=== PATIENT | female | born 1955 | race Native Hawaiian/Other Pacific Islander ===

== ENCOUNTER 2016-05-07 09:21 | Outpatient (CLI) | payer BC ==
[~2016-05-07 09:21] MED LIST: ASTEPRO0.15 %; CELEBREX200 MG PO; FLUC150T PO; INDERAL LA80 MG PO; LEVO0.0723 PO; MAXALT10 MG OR; NAPROXEN SOD550 MG OR; NEXIUM40 M1 PO; RANI150T78 PO; SIMV20TA2 PO; Z-PAK PO
[2016-05-07 10:17] LABS: PLATELET COUNT 366 K/uL (152-353)
[2016-05-07 10:55] LABS: POTASSIUM 3.6 mmol/L (3.6-5.2)
== END 2016-05-07 19:07 | disposition home or self-care (01) ==
LOC: LABW 09:21
PROVIDERS: Internal Medicine
DX: Z00.00 Encounter for general adult medical examination without abnormal findings (principal); J42 Unspecified chronic bronchitis; E03.9 Hypothyroidism, unspecified
CPT/HCPCS: 36415; 80053; 80061; 81000; 84439; 84443; 84480; 85027

== ENCOUNTER 2016-05-08 14:47 | Outpatient (CLI) | payer BC | END 2016-05-08 19:10 | disposition home or self-care (01) | LOC: MAMMO 14:47 → RAD 14:47 → MAMMO 15:00 | DX: Z12.31 Encounter for screening mammogram for malignant neoplasm of breast (principal); Z13.820 Encounter for screening for osteoporosis | CPT/HCPCS: G0202-TC ==

== ENCOUNTER 2016-06-09 01:30 | Observation (INO) | payer BC ==
[~2016-06-09] VITALS: Ht 154.9 cm; Wt 94.5 kg
[2016-06-09 01:50] VITALS: BP 182/95; TEMP 97.1
[2016-06-09] MEDS ORDERED: DEXL60CA4 PO (01:55)
[2016-06-09] MEDS ORDERED: ASPIRIN81 M1 PO (02:01)
[2016-06-09] MEDS ORDERED: CETI10TA PO (02:02)
[2016-06-09] MEDS ORDERED: B-125000 MC1 SL (02:03)
[2016-06-09] MEDS ORDERED: ZONEGRAN100 MG PO (02:04)
[2016-06-09] MEDS ORDERED: MELOXICAM15 MG PO (02:05)
[2016-06-09] MEDS ORDERED: FLUTICASONE50 MCG (02:07)
[2016-06-09 02:12] LABS: POTASSIUM 3.9 mmol/L (3.6-5.2); SODIUM 139 mmol/L (136-145)
[2016-06-09 02:23] LABS: PLATELET COUNT 347 K/uL (152-353)
[2016-06-09 03:27] VITALS: BP 147/66; TEMP 98.2; Ht 154.9 cm; Wt 94.5 kg
[2016-06-09 03:46] LABS: PARTIAL THROMBOPLASTIN TIME 23.3 SECONDS (24.5-33.6)
[2016-06-09 08:00] VITALS: BP 140/68; TEMP 98
[2016-06-09 12:00] VITALS: BP 143/59; TEMP 98.4
[2016-06-09 16:00] VITALS: BP 142/62; TEMP 98.1
[2016-06-09 20:00] VITALS: BP 137/57; TEMP 98.2
[2016-06-10] VITALS: BP 104/33; TEMP 97.9
[2016-06-10 04:00] VITALS: BP 128/58; TEMP 97.8
[2016-06-10 04:50] LABS: PLATELET COUNT 351 K/uL (152-353)
[2016-06-10 05:01] LABS: POTASSIUM 3.6 mmol/L (3.6-5.2)
[2016-06-10 08:00] VITALS: BP 119/58; TEMP 97.7
[2016-06-10] MEDS ORDERED: MAXALT10 MG PO (12:05)
== END 2016-06-10 14:34 | disposition home or self-care (01) ==
LOC: ED 01:30 → MED/SURG 02:30
PROVIDERS: Emergency Medicine; ADMIT Family Medicine
DX: R07.89 Other chest pain (principal); G43.809 Other migraine, not intractable, without status migrainosus; E03.8 Other specified hypothyroidism
CPT/HCPCS: 36415; 36591; 80048; 80053; 81000; 82550; 83735; 84443; 84484; 85027; 85379; 85610; 85730; 93005; 96372; 99220; 99283; G0378; J1650

== ENCOUNTER 2016-09-16 10:44 | Outpatient (CLI) | payer BC ==
[~2016-09-16 10:44] MED LIST changes: +ASPIRIN81 M1 PO; +B-125000 MC1 SL; +CETI10TA PO; +DEXL60CA4 PO; +FLUTICASONE50 MCG; +MAXALT10 MG PO; +MELOXICAM15 MG PO; +ZONEGRAN100 MG PO
== END 2016-09-16 19:08 | disposition home or self-care (01) ==
LOC: LABW 10:44
DX: E03.8 Other specified hypothyroidism (principal)
CPT/HCPCS: 36415; 84439; 84443; 84480

== ENCOUNTER 2017-04-06 11:25 | Outpatient (CLI) | payer BC | END 2017-04-06 20:29 | disposition home or self-care (01) | LOC: LABW 11:25 | DX: E03.8 Other specified hypothyroidism (principal) | CPT/HCPCS: 36415; 84439; 84443; 84480 ==

== ENCOUNTER 2017-07-20 11:20 | Outpatient (CLI) | payer BC | END 2017-07-20 22:49 | disposition home or self-care (01) | LOC: RAD 11:20 | DX: J01.00 Acute maxillary sinusitis, unspecified (principal); J40 Bronchitis, not specified as acute or chronic ==

== ENCOUNTER 2017-08-25 12:49 | Outpatient (CLI) | payer BC | END 2017-08-25 19:49 | disposition home or self-care (01) | LOC: CT 12:49 | DX: J01.00 Acute maxillary sinusitis, unspecified (principal); J40 Bronchitis, not specified as acute or chronic ==

== ENCOUNTER 2017-10-08 08:10 | Outpatient (CLI) | payer BC ==
[2017-10-08 08:33] LABS: PLATELET COUNT 375 K/uL (152-353)
[2017-10-08 08:46] LABS: POTASSIUM 3.7 mmol/L (3.6-5.2)
== END 2017-10-08 21:16 | disposition home or self-care (01) ==
LOC: LABW 08:10
PROVIDERS: Internal Medicine
DX: Z00.00 Encounter for general adult medical examination without abnormal findings (principal); E55.9 Vitamin D deficiency, unspecified
CPT/HCPCS: 36415; 80053; 80061; 81000; 82306; 84439; 84443; 85027

== ENCOUNTER 2017-10-20 13:33 | Outpatient (CLI) | payer BC | END 2017-10-20 19:36 | disposition home or self-care (01) | LOC: MAMMO 13:33 | DX: Z12.31 Encounter for screening mammogram for malignant neoplasm of breast (principal) ==

== ENCOUNTER → 2018-07-12 | Outpatient (CLI) | payer BC | LOC: LABW 14:50 | DX: E03.9 Hypothyroidism, unspecified (principal) | CPT/HCPCS: 36415; 84439; 84443; 84480 ==

== ENCOUNTER 2018-10-09 08:24 | Outpatient (CLI) | payer BC ==
[2018-10-09 08:54] LABS: PLATELET COUNT 362 K/uL (152-353)
[2018-10-09 09:12] LABS: POTASSIUM 3.6 mmol/L (3.6-5.2); SODIUM 140 mmol/L (136-145)
== END 2018-10-09 22:32 | disposition home or self-care (01) ==
LOC: LAB 08:24
PROVIDERS: Internal Medicine
DX: Z00.00 Encounter for general adult medical examination without abnormal findings (principal)
CPT/HCPCS: 36415; 80053; 80061; 81000; 82306; 84439; 84443; 85027

== ENCOUNTER 2018-11-03 10:45 | Outpatient (CLI) | payer BC | END 2018-11-03 23:46 | disposition home or self-care (01) | LOC: MAMMO 10:45 | DX: Z13.820 Encounter for screening for osteoporosis (principal); Z12.31 Encounter for screening mammogram for malignant neoplasm of breast; Z12.39 Encounter for other screening for malignant neoplasm of breast; N95.8 Other specified menopausal and perimenopausal disorders ==

== ENCOUNTER 2018-12-27 15:07 | Outpatient (CLI) | payer BC | END 2018-12-27 19:42 | disposition home or self-care (01) | LOC: LABW 15:07 | DX: E03.9 Hypothyroidism, unspecified (principal) | CPT/HCPCS: 36415; 84439; 84443; 84480 ==

== ENCOUNTER 2019-12-07 08:51 | Outpatient (CLI) | payer BC, OTHER | END 2019-12-07 23:16 | disposition home or self-care (01) | LOC: LAB 08:51 | DX: Z20.828 Contact with and (suspected) exposure to other viral communicable diseases (principal) | CPT/HCPCS: 87635; G2023; U0003 ==

== ENCOUNTER 2020-03-01 12:58 | Outpatient (CLI) | payer OTHER | END 2020-03-01 19:05 | disposition home or self-care (01) | LOC: MAMMO 12:58 | PROVIDERS: ATTEND Internal Medicine | DX: Z00.00 Encounter for general adult medical examination without abnormal findings (principal); Z12.31 Encounter for screening mammogram for malignant neoplasm of breast ==

== ENCOUNTER 2020-03-05 13:14 | Outpatient (CLI) | payer OTHER ==
[2020-03-05 13:23] LABS: PLATELET COUNT 399 K/uL (152-353)
== END 2020-03-05 19:48 | disposition home or self-care (01) ==
LOC: LAB 13:14
PROVIDERS: ATTEND Internal Medicine
DX: D72.828 Other elevated white blood cell count (principal)
CPT/HCPCS: 85027

== ENCOUNTER 2020-03-15 12:56 | Outpatient (CLI) | payer OTHER ==
[2020-03-15 13:43] LABS: PLATELET COUNT 384 K/uL (152-353)
== END 2020-03-15 19:26 | disposition home or self-care (01) ==
LOC: LAB 12:56
PROVIDERS: ATTEND Internal Medicine
DX: D72.828 Other elevated white blood cell count (principal)
CPT/HCPCS: 85027

== ENCOUNTER 2020-04-18 10:54 | Outpatient (CLI) | payer BC | END 2020-04-18 23:59 | disposition home or self-care (01) | LOC: RAD 10:54 | PROVIDERS: ATTEND Internal Medicine | DX: R05 Cough (principal) ==

== ENCOUNTER 2020-04-19 11:01 | Outpatient (CLI) | payer BC, OTHER | END 2020-04-19 20:45 | disposition home or self-care (01) | LOC: LAB 11:01 | PROVIDERS: ATTEND Internal Medicine | DX: U07.1 COVID-19 (principal); R05 Cough; Z11.59 Encounter for screening for other viral diseases | CPT/HCPCS: 87635; G2023; U0003 ==

== ENCOUNTER 2020-06-15 11:36 | Outpatient (CLI) | payer BC | END 2020-06-15 19:25 | disposition home or self-care (01) | LOC: LABW 11:36 | PROVIDERS: ATTEND Psychiatry & Neurology Neurology | DX: G31.84 Mild cognitive impairment of uncertain or unknown etiology (principal) | CPT/HCPCS: 36415; 82607; 82747 ==

== ENCOUNTER 2020-06-27 08:39 | Outpatient (CLI) | payer BC ==
[2020-06-27 09:24] LABS: PLATELET COUNT 382 K/uL (152-353)
[2020-06-27 10:04] LABS: POTASSIUM 3.9 mmol/L (3.6-5.2)
== END 2020-06-27 22:38 | disposition home or self-care (01) ==
LOC: LABW 08:39
PROVIDERS: ATTEND Internal Medicine
DX: D72.829 Elevated white blood cell count, unspecified (principal); R53.83 Other fatigue; I10 Essential (primary) hypertension
CPT/HCPCS: 36415; 80053; 80061; 81000; 85027; 85652; 86038

== ENCOUNTER 2020-11-21 10:18 | Outpatient (CLI) | payer BC | END 2020-11-21 19:09 | disposition home or self-care (01) | LOC: RAD 10:18 | PROVIDERS: ATTEND Internal Medicine | DX: R05 Cough (principal) ==

== ENCOUNTER 2021-06-07 12:54 | Outpatient (CLI) | payer BC ==
[2021-06-07 13:15] LABS: PLATELET COUNT 376 K/uL (152-353)
[2021-06-07 13:26] LABS: POTASSIUM 4.3 mmol/L (3.6-5.2)
== END 2021-06-07 21:46 | disposition home or self-care (01) ==
LOC: LAB 12:54
PROVIDERS: ATTEND Internal Medicine
DX: Z00.00 Encounter for general adult medical examination without abnormal findings (principal); Z13.820 Encounter for screening for osteoporosis; Z79.899 Other long term (current) drug therapy
CPT/HCPCS: 80053; 80061; 81000; 82306; 84439; 84443; 85027

== ENCOUNTER 2021-06-18 14:18 | Outpatient (CLI) | payer BC | END 2021-06-18 19:13 | disposition home or self-care (01) | LOC: MAMMO 14:18 | PROVIDERS: ATTEND Internal Medicine | DX: Z12.31 Encounter for screening mammogram for malignant neoplasm of breast (principal); Z13.820 Encounter for screening for osteoporosis; N95.8 Other specified menopausal and perimenopausal disorders ==

== ENCOUNTER 2021-07-02 09:22 | Outpatient (CLI) | payer BC | END 2021-07-02 19:02 | disposition home or self-care (01) | LOC: US 09:22 | PROVIDERS: ATTEND Internal Medicine | DX: R10.11 Right upper quadrant pain (principal) ==

== ENCOUNTER 2021-12-11 09:39 | Outpatient (CLI) | payer BC ==
[2021-12-11 10:23] LABS: POTASSIUM 3.7 mmol/L (3.6-5.2)
== END 2021-12-11 18:49 | disposition home or self-care (01) ==
LOC: LABW 09:39
PROVIDERS: ATTEND Internal Medicine Endocrinology, Diabetes & Metabolism
DX: R74.8 Abnormal levels of other serum enzymes (principal); E03.8 Other specified hypothyroidism
CPT/HCPCS: 36415; 80053; 82306; 84080; 84439; 84443; 84480; 84481

== ENCOUNTER 2022-02-12 14:16 | Outpatient (CLI) | payer BC | END 2022-02-12 23:59 | disposition home or self-care (01) | LOC: RAD 14:16 | PROVIDERS: ATTEND Internal Medicine | DX: J40 Bronchitis, not specified as acute or chronic (principal); J01.00 Acute maxillary sinusitis, unspecified ==

== ENCOUNTER 2022-10-30 10:56 | Outpatient (CLI) | payer BC | END 2022-10-30 21:48 | disposition home or self-care (01) | LOC: MAMMO 10:56 | PROVIDERS: ATTEND Internal Medicine | DX: Z12.31 Encounter for screening mammogram for malignant neoplasm of breast (principal) ==